=== PATIENT | female | born 1940 | race Caucasian/White ===

== ENCOUNTER 2016-11-13 18:11 | Emergency (ER) | payer BC, OTHER ==
[2016-11-13 18:27] VITALS: BP 157/101; PULSE 106; RESP 20; TEMP 98.6; O2SAT 97
--- NOTE | 2016-11-13 18:52 | EDPHY ---
H & P Stated Complaint: constipation since sunday/some abd cramping with bm Time Seen by Provider: 11/13/16 18:34 HPI/ROS: Chief Complaint: Constipation HPI: 76-year-old woman who is visiting from [place]. Patient arrived 3 days ago and had some abdominal cramping that day. She took some lactate and some Imodium because she thought it might be secondary to some of the milk that she had in her coffee. Two days ago she continued to have some cramping at that point took a hot do clocks. Yesterday morning she had a large bowel movement but has since had some intermittent cramping. Cramping goes away after she has of small bowel movement and then comes back. It moves around. She has not had any fevers or chills. No nausea or vomiting. No dark black bowel movements. No chest pain shortness of breath. Currently has no pain or complaints. ROS: 10 point Review of Systems is negative except as noted in the HPI. PMH: Hypertension, hyperlipidemia Medications: Amlodipine, atorvastatin Allergies: No known drug allergies Social History: No smoking, occasional alcohol, no recreational drug use Family History: non-contributory Physical Exam: Gen: Awake, Alert, No Distress HEENT: Nose: no rhinorrhea Eyes: PERRLA, EOMI Mouth: Moist mucosa Neck: Supple, no JVD Chest: nontender, lungs clear to auscultation Heart: S1, S2 normal, no murmur Abd: Soft, non-tender, no guarding Back: no CVA tenderness, no midline tenderness Ext: no edema, non-tender Skin: no rash Neuro: CN II-XII intact, Sensation grossly intact, Strength 5/5 in bilateral upper and lower extremities - Personal History Current Tetanus/Diphtheria Vaccine: Yes - Medical/Surgical History Hx Asthma: No Hx Chronic Respiratory Disease: No Hx Diabetes: No Hx Cardiac Disease: No Hx Renal Disease: No Hx Cirrhosis: No Hx Alcoholism: No Hx HIV/AIDS: No Hx Splenectomy or Spleen Trauma: No Other PMH: cataract surgery - Social History Smoking Status: Never smoked Constitutional: Initial Vital Signs Temperature (C) 37 C 11/13/16 18:24 Heart Rate 106 H 11/13/16 18:24 Respiratory Rate 20 11/13/16 18:24 Blood Pressure 157/101 H 11/13/16 18:24 O2 Sat (%) 97 11/13/16 18:24 O2 Delivery Mode Room Air Allergies/Adverse Reactions: No Known Allergies Allergy (Unverified 11/13/16 18:24) Home Medications: Medication Instructions Recorded [place] 10 mg-10 mg Tablet 11/13/16 Medical Decision Making ED Course/Re-evaluation: 76-year-old woman presenting with symptoms consistent with constipation. She has some cramping of Sunday into good Imodium which I think was constipating for her. She did have a large bowel movement yesterday was continued to have some camping intermittent small bowel movements. Abdominal exam is completely benign. She does have bit but a fullness in the left and the right lower quadrants but no real pain or tenderness. There is no guarding. Symptoms certainly could possibly be an very early diverticulitis however given the benign nature of her exam and the fact that she is not having any constant pain I think this is less likely. Symptoms are more consistent with constipation. I have recommended she does take Mag citrate and start MiraLax. If she still come having pain or any symptoms in 24 hours she will return emergency department for re-evaluation. She will return sooner if symptoms worsen. There is no other evidence of acute intra-abdominal process at this time. Departure - Departure Disposition: Home, Routine, Self-Care Clinical Impression: Constipation Condition: Good Instructions: Constipation (ED) Additional Instructions: By a magnesium citrate at the grocery store. Drink half a bottle. If you have not had a bowel movement 1/2 to 2 hours drink the 2nd half of the bottle. By a MiraLax at the grocery store and start taking per package instructions. Make sure to drink plenty of fluids, avoid alcohol and caffeine. Please try to stay active and avoid bedrest. If pain worsens return to the emergency department for further evaluation. If symptoms are not improved by tomorrow at this time return to the emergency department for further evaluation. Follow up with your primary care physician when you return home to [place]. Referrals: SHARON HATCH [Other] - As per Instructions
== END 2016-11-13 19:00 | disposition home or self-care (01) ==
DX: K59.00 Constipation, unspecified (principal); I10 Essential (primary) hypertension